=== PATIENT | female | born 1965 | race Caucasian/White ===

== ENCOUNTER 2016-12-22 09:10 | Emergency (ER) | payer OTHER ==
[2016-12-22 09:20] VITALS: TEMP 98.8
[2016-12-22] MEDS ORDERED: ASPIRIN TABLET 325 MG TAB PO ONE (09:24)
--- NOTE | 2016-12-22 09:27 | ED.PDOC ---
History of Present Illness - General Chief Complaint: Neuro Symptoms/Deficits Stated Complaint: numbness in face and dizziness x 20 min Time Seen by Provider: 12/22/16 09:12 Source: patient Exam Limitations: no limitations - History of Present Illness Initial Comments: the patient is a 51-year-old female presenting to the emergency room secondary to a feeling of numbness to the left upper two thirds of her face that started approximately one half hour prior to arrival while she was simply sitting at work. No facial droop. No vision changes. No changes in her hearing. She does have some chronic allergic rhinitis and sinusitis issues that have been flaring. She does have known Mnire's. She does have chronic tinnitus. No difficulty with speech or swallowing. No difficulty with moving her extremities. No numbness elsewhere. No syncope or near-syncope. No chest pain or shortness of breath. She has recently had some anxiety issues. She does not take anything as far as medications with the exception of a multivitamin. She did reportedly have shingles to the left side of her forehead approximately 1 year ago according to her. Her current numbness does include that area but also includes an area slightly lower. No rashes noted currently. No falls or injuries. Timing/Duration: 1/2 hour Severity: mild Improving Factors: nothing Worsening Factors: nothing Associated Symptoms: malaise Allergies/Adverse Reactions: Allergies Amantadine Allergy (Verified 12/22/16 09:18) Home Medications: Ambulatory Orders Acyclovir [Zovirax] 800 mg PO Q6H #20 tab 12/22/16 Gabapentin [Neurontin] 100 mg PO Q8H PRN #20 cap 12/22/16 Review of Systems - Review of Systems Constitutional: States: malaise EENTM: States: ear pain - pressure related to allergies, nose congestion Respiratory: States: no symptoms reported Cardiology: States: no symptoms reported Gastrointestinal/Abdominal: States: no symptoms reported Genitourinary: States: no symptoms reported Musculoskeletal: States: no symptoms reported Skin: States: no symptoms reported Neurological: States: see HPI, anxiety Endocrine: States: no symptoms reported Hematologic/Lymphatic: States: no symptoms reported All other Systems: No Change from Baseline Past Medical History (General) - Patient Medical History Hx Seizures: No Hx Stroke: No Hx Dementia: No Hx Asthma: No Hx of COPD: No Hx Cardiac Disorders: No Hx Congestive Heart Failure: No Hx Pacemaker: No Hx Hypertension: No Hx Thyroid Disease: No Hx Diabetes: No Hx Gastroesophageal Reflux: No Hx Renal Disease: No Hx Cancer: No Hx of HIV: No Hx Hepatitis C: No Hx MRSA: No Surgical History: appendectomy - Vaccination History Hx Tetanus, Diphtheria Vaccination: Yes Hx Influenza Vaccination: Yes Hx Pneumococcal Vaccination: No Immunizations Up to Date: Yes - Social History Hx Tobacco Use: Yes Hx Chewing Tobacco Use: No Hx Alcohol Use: No Hx Substance Use: No Hx Substance Use Treatment: No Hx Depression: No Feels Threatened In Home Enviroment: No Feels Threatened In a Relationship: No Hx Physical Abuse: No Hx Emotional Abuse: No Hx Suspected Abuse: No - Female History Patient is a Female of Child Bearing Age (10 -59 yrs old): No Patient : No Family Medical History - Family History Father Living Status: Hx Family Diabetes: Yes - type 2 Mother Family History: No Known Living Status: Hx Family Asthma: No Physical Exam - Physical Exam General Appearance: Alert, Anxious, No apparent distress Eye Exam: bilateral normal Ears, Nose, Throat: hearing grossly normal, nasal congestion - mild, other - bilateral tympanic membranes show increased pressure and chronic opacity related to allergic rhinitis. No evidence of overt infection. Neck: non-tender, full range of motion, supple, normal inspection - no carotid bruits heard Respiratory: chest non-tender, lungs clear, normal breath sounds, no respiratory distress, no accessory muscle use Cardiovascular/Chest: normal peripheral pulses, no edema, other - the patient is in a sinus tachycardia with a very mildly hyperdynamic precordium currently, but she is anxious Peripheral Pulses: radial,right: 2+, radial,left: 2+, dorsalis pedis,right: 2+, dorsalis pedis,left: 2+ Gastrointestinal/Abdominal: non tender, soft Rectal Exam: deferred Back Exam: normal inspection, no CVA tenderness, no vertebral tenderness Extremity: normal range of motion, non-tender, normal inspection, no pedal edema , no calf tenderness, normal capillary refill Neurologic: alert, normal mood/affect - mild anxiety as stated above, oriented x 3, other - see history of present illness Skin Exam: normal color Comments: Vital Signs - 24 hr 12/22/16 09:15 Temperature 98.8 F Pulse Rate [ 102 H Left Radial] Respiratory 16 Rate Blood Pressure 159/82 [Left Arm] O2 Sat by Pulse 99 Oximetry Progress - Progress Progress: 12/22/16 11:14 the patient is a 51-year-old female presenting to the emergency room secondary to sensation of numbness, even though there is no actual sensation loss, to the left upper half of her face. This is in a similar distribution to her previous shingles. The patient has been monitored for several hours and there is no progression of symptoms. There is no rash at this time. No other neurological changes. Lab work is reassuring. This does appear to be a neuralgia. The patient will be placed on acyclovir in case she is starting to have a shingles flare in that distribution again. Additionally she can take an anti-inflammatory in the form of Advil for the next 3-4 days to help reduce inflammation that may be surrounding the nerve root and also reduce inflammation in her in her ear from her allergic rhinitis. To this end she can also take a Zyrtec daily. obviously if her symptoms change in any significant way for the worse and she needs to be reevaluated. She does understand this. Additionally I would recommend that she take a baby aspirin daily for the next few weeks. ER warnings were given. Follow-up with primary care doctor later this week. the patient will also be written for a prescription for Neurontin for as needed use for nerve discomfort. - Results/Orders Results/Orders: Laboratory Tests 12/22/16 12/22/16 12/22/16 09:20 09:22 09:32 WBC 11.6 H RBC 4.94 Hgb 14.7 Hct 43.8 MCV 88.7 MCH 29.7 MCHC 33.5 RDW 13.9 Plt Count 332 MPV 8.4 Absolute Neuts (auto) 7.30 H Absolute Lymphs (auto) 3.40 Absolute Monos (auto) 0.60 Absolute Eos (auto) 0.20 Absolute Basos (auto) 0.10 Neutrophils % 63.0 Lymphocytes % 29.2 Monocytes % 5.1 Eosinophils % 1.6 Basophils % 1.1 PT 10.5 INR 0.930 PTT (SP) 33.6 Sodium 138 Potassium 3.6 Chloride 107 Carbon Dioxide 26 Anion Gap 8.6 L BUN 8 Creatinine 0.69 BUN/Creatinine Ratio 11.6 Random Glucose 125 H Serum Osmolality 275.5 Calcium 9.0 Magnesium 1.8 Total Bilirubin 0.3 AST 16 ALT 15 Alkaline Phosphatase 103 Creatine Kinase 74 CK-MB (CK-2) 1.1 CK-MB (CK-2) % Not Reportable Troponin I < 0.02 B-Natriuretic Peptide 17.0 Serum Total Protein 7.6 Albumin 4.3 Globulin 3.3 Albumin/Globulin Ratio 1.3 TSH 0.92 Urine Color Yellow Urine Appearance Clear Urine pH 5.5 Ur Specific [place] 1.010 Urine Protein Negative Urine Glucose (UA) Negative Urine Ketones Negative Urine Blood Negative Urine Nitrite Negative Urine Bilirubin Negative Urine Urobilinogen 0.2 Ur Leukocyte Esterase Negative Urine RBC 0-1 Urine WBC 0 Ur Epithelial Cells 1-3 Amorphous Sediment 1+ Urine Bacteria 0 Urine HCG, Qual Negative EKG shows mild sinus tachycardia with a normal axis and intermittent PACs and PVCs. Chest x-ray appears benign. Departure - Departure Clinical Impression: Neuralgia and neuritis, unspecified Disposition: Discharge to Home or Self Care Condition: Fair Departure Forms: ED Discharge - Pt. Copy, Patient Portal Self Enrollment Instructions: DI for Shingles Diet: regular diet Activity: increase activity as tolerated Referrals: Vicente Flynn MD [Primary Care Provider] - 1-5 Days Prescriptions: Gabapentin [Neurontin] 100 mg PO Q8H PRN #20 cap PRN Reason: Pain Acyclovir [Zovirax] 800 mg PO Q6H #20 tab Home Medications: Ambulatory Orders Acyclovir [Zovirax] 800 mg PO Q6H #20 tab 12/22/16 Gabapentin [Neurontin] 100 mg PO Q8H PRN #20 cap 12/22/16 Additional Instructions: the patient is a 51-year-old female presenting to the emergency room secondary to sensation of numbness, even though there is no actual sensation loss, to the left upper half of her face. This is in a similar distribution to her previous shingles. The patient has been monitored for several hours and there is no progression of symptoms. There is no rash at this time. No other neurological changes. Lab work is reassuring. This does appear to be a neuralgia. The patient will be placed on acyclovir in case she is starting to have a shingles flare in that distribution again. Additionally she can take an anti-inflammatory in the form of Advil for the next 3-4 days to help reduce inflammation that may be surrounding the nerve root and also reduce inflammation in her in her ear from her allergic rhinitis. To this end she can also take a Zyrtec daily. obviously if her symptoms change in any significant way for the worse and she needs to be reevaluated. She does understand this. Additionally I would recommend that she take a baby aspirin daily for the next few weeks. ER warnings were given. Follow-up with primary care doctor later this week. the patient will also be written for a prescription for Neurontin for as needed use for nerve discomfort.
--- NOTE | 2016-12-22 10:05 | RAD ---
EXAM DESCRIPTION: Chest,2 Views CLINICAL HISTORY: 51 years Female, left facial tingling IMPRESSION: Two views of the chest reveal clear lungs. Heart size is unremarkable. No pleural effusion or pneumothorax. Lumbar spine is unremarkable. Electronically signed by: Yasir Brand MD 12/22/2016 10:04 AM CDT
[2016-12-22 11:24] VITALS: BP 126/86; O2SAT 89
== END 2016-12-22 11:30 | disposition home or self-care (01) ==
LOC: ER 09:10
DX: M79.2 Neuralgia and neuritis, unspecified (principal); H81.09 Meniere's disease, unspecified ear; Z87.891 Personal history of nicotine dependence; Z88.8 Allergy status to other drugs, medicaments and biological substances

== ENCOUNTER → 2017-02-09 | Outpatient (CLI) | payer OTHER | END | disposition home or self-care (01) | LOC: YCFC.O 13:21 | PROVIDERS: ATTEND Nurse Practitioner Family | DX: Z01.84 Encounter for antibody response examination (principal) ==

== ENCOUNTER → 2017-03-24 | Outpatient (CLI) | payer OTHER ==
--- NOTE | 2017-03-25 12:23 | MAM ---
EXAM DESCRIPTION: 3D Screening BILATERAL CLINICAL HISTORY: 51 yearsFemaleSCREENING. Postmenopausal. No complaints. COMPARISON: Digital screening bilateral examination 01/07/2016. No prior reports available. TECHNIQUE: Bilateral CC and MLO projection full-field images, 3-D tomosynthesis digital mammographic technique. Also bilateral synthesized CC/ MLO full-field images. CAD not utilized. FINDINGS: The breast parenchymal density pattern is: Scattered areas of fibroglandular density. No skin thickening or nipple retraction focal asymmetry in the middle third of the lateral left breast is stable since the prior study with no associated microcalcifications or mass density. Intramammary lymph nodes also seen in the posterior third upper outer quadrant of the left breast and the 6:00 position of the anterior third of the left breast. Small lymph node in the axillary tail of the posterior third of the right breast is stable. Focal asymmetry at the 900 clock position of the middle third of the right breast is also stable. Not associated with mass density. No focal, stellate mass or density, , and no suspicious microcalcifications bilaterally. Stable mammograms compared to January 2016. IMPRESSION: BI-RADS CATEGORY: 2 - BENIGN FINDINGS. FOLLOW UP: Routine digital bilateral screening, one year interval from March 2017. Written communication explaining the findings and follow-up, will be mailed to the patient and referring health care provider. According to the [employer], yearly mammograms are recommended starting at age 40 and continuing as long as a woman is in good health. Any breast change noted on a breast self-exam should be reported promptly to the patient's healthcare provider. Breast MRI is recommended for women with an approximately 20-25% or greater lifetime risk of breast cancer, including women with a strong family history of breast or ovarian cancer and women who have been treated for Hodgkin's disease. A negative mammographic report should not delay tissue diagnosis in patients with significant clinical history or physical findings. Extremely dense breast tissue limits the sensitivity of digital mammography. Electronically signed by: Saul Gonzalez MD 03/25/2017 12:22 PM CDT Workstation: [id number]
== END ==
LOC: MAMMO 12:00
PROVIDERS: ATTEND Family Medicine
DX: Z12.31 Encounter for screening mammogram for malignant neoplasm of breast (principal)
CPT/HCPCS: G0202; G0279

== ENCOUNTER → 2017-05-13 | Outpatient (CLI) | payer OTHER | LOC: YCFC.O 11:45 | PROVIDERS: ATTEND Nurse Practitioner Family | DX: R53.83 Other fatigue (principal) ==

== ENCOUNTER → 2017-10-07 | Outpatient (CLI) | payer OTHER | LOC: YCFC.O 10:52 | DX: B34.9 Viral infection, unspecified (principal) ==

== ENCOUNTER → 2018-05-05 | Outpatient (CLI) | payer OTHER ==
--- NOTE | 2018-05-07 13:18 | MAM ---
EXAM DESCRIPTION: 3D Screening BILATERAL : Digital Mammography. CLINICAL HISTORY: 53 years Female SCREENING . No complaints. No personal history or family history of breast cancer. Childbirth. Postmenopausal. No HRT. Lifetime risk of developing breast cancer (Tyrer-Cuzick model) is 7.5 %. COMPARISON: Bilateral screening digital breast tomosynthesis on 03/24/2017. TECHNIQUE: Bilateral CC and MLO projection full-field images, Digital tomosynthesis mammographic technique. Bilateral digital 2-D full-field MLO images. CAD not utilized. FINDINGS: The breast parenchymal density pattern is: Scattered areas of fibroglandular density. No skin thickening or nipple retraction. Bilateral intramammary lymph nodes. No new focal, stellate mass or density, focal asymmetry , and no suspicious microcalcifications bilaterally. Stable mammograms compared to prior study. Taking into account, differences in mammographic technique. IMPRESSION: Benign exam. BIRAD CATEGORY: 2 BENIGN FINDINGS. RECOMMENDATIONS: FOLLOW UP: Routine digital bilateral screening, one year interval from April 2018. Written communication explaining the IMPRESSION and follow-up, will be mailed to the patient and referring health care provider. According to the [employer], yearly mammograms are recommended starting at age 40 and continuing as long as a woman is in good health. Any breast change noted on a breast self-exam should be reported promptly to the patient's healthcare provider. Breast MRI is recommended for women with an approximately 20-25% or greater lifetime risk of breast cancer, including women with a strong family history of breast or ovarian cancer and women who have been treated for Hodgkin's disease. A negative mammographic report should not delay tissue diagnosis in patients with significant clinical history or physical findings. Extremely dense breast tissue limits the sensitivity of digital mammography. Electronically signed by: Saul Gonzalez MD 05/07/2018 1:17 PM CDT
== END ==
LOC: MAMMO 15:00
PROVIDERS: ATTEND Nurse Practitioner Family
DX: Z12.31 Encounter for screening mammogram for malignant neoplasm of breast (principal)

== ENCOUNTER → 2018-06-02 | Outpatient (CLI) | payer OTHER ==
--- NOTE | 2018-06-02 14:46 | RAD ---
EXAM: Ankle,Left 3 Views CLINICAL HISTORY: PAIN IN LEFT ANKLE AND JOINTS OF LEFT FOOT. TECHNIQUE: AP, lateral and oblique images. COMPARISON STUDY: None FINDINGS: Bone structures and joint spaces appear normal. No fracture or dislocation identified. A 9 mm plantar heel spurs noted. IMPRESSION: 1. Negative left ankle. 2. 9 mm plantar heel spur Electronically signed by: Sudeep Correa MD 06/02/2018 2:45 PM CDT
--- NOTE | 2018-06-02 14:47 | RAD ---
EXAM: Knee,Left 2 or More Views CLINICAL HISTORY: PAIN IN LEFT KNEE COMPARISON STUDY: None TECHNICAL: AP and lateral images of the left knee FINDINGS: There is mild joint space loss of the medial compartment. Osteophytes extend medially from the joint line. There are mild degenerative changes of the patellofemoral joint. There is no fracture or dislocation. A small joint effusion is present. IMPRESSION: 1. Mild degenerative changes of the medial compartment and patellofemoral joint. 2. Small joint effusion Electronically signed by: Sudeep Correa MD 06/02/2018 2:46 PM CDT
== END ==
LOC: RAD 10:21
DX: M25.572 Pain in left ankle and joints of left foot (principal); M25.562 Pain in left knee; M77.32 Calcaneal spur, left foot; M25.462 Effusion, left knee

== ENCOUNTER → 2019-01-03 | Outpatient (CLI) | payer BC | LOC: LAB.O 07:51 | PROVIDERS: ATTEND Obstetrics & Gynecology | DX: Z01.419 Encounter for gynecological examination (general) (routine) without abnormal findings (principal) ==

== ENCOUNTER → 2020-09-13 | Outpatient (CLI) | payer BC ==
--- NOTE | 2020-09-13 16:49 | RAD ---
EXAM DESCRIPTION: Chest,2 Views CLINICAL HISTORY: COVID COMPARISON: Two view chest x-ray December 22, 2016 TECHNIQUE: PA/lateral FINDINGS: Heart size is prominent with normal pulmonary vascularity. No pleural effusion or pneumothorax. Increased density in the right infrahilar region is seen on the frontal view but no infiltrate is identified on the lateral view. It could be that this is no abnormal rib such as cartilage calcification of a bifid anterior right fifth rib. Similar appearance was seen on the previous study. No previous chest CT is available for comparison. Lungs are otherwise clear with no consolidating infiltrate. Lateral view shows intact sternum and T-spine. IMPRESSION: No definite infiltrate is identified in the chest. See above. Electronically signed by: Nate Casey MD 09/13/2020 4:47 PM [facility]
== END ==
LOC: YCFC.O 10:03
PROVIDERS: ATTEND Family Medicine
DX: U07.1 COVID-19 (principal)

== ENCOUNTER 2020-09-14 14:24 | Outpatient (CLI) | payer BC | END 2020-09-14 16:55 | disposition home or self-care (01) | LOC: INFRM 14:24 | PROVIDERS: ATTEND Nurse Practitioner Family | DX: U07.1 COVID-19 (principal) ==

== ENCOUNTER 2020-09-16 04:31 | Observation (INO) | payer BC ==
[2020-09-16] MEDS ORDERED: ONDANSETRON INJ 4 MG/2 ML VIAL ONE (04:38)
[2020-09-16] MEDS ORDERED: ONDANSETRON INJ 4 MG/2 ML VIAL IV ONE ×2 (04:49→05:46)
[2020-09-16] MEDS ORDERED: SODIUM CHLORIDE 0.9% 1000ML 1,000 ML IVS ONE (04:53)
--- NOTE | 2020-09-16 05:35 | ED.PDOC ---
History of Present Illness - General Chief Complaint: Abdominal Pain Stated Complaint: NAUSEA/VOMITING Time Seen by Provider: 09/16/20 05:20 Source: patient, RN notes reviewed - History of Present Illness Initial Comments: The patient is a 55 year old with no significant past medical history who presents to the ED with nausea and vomiting. She states that she started to feel ill last week with myalgias and tested positive for COVID-19 after losing taste and smell. She received bamlanivimab infusion two days ago. Afterward she developed profuse nausea and vomiting and later dry-heaves. She reports feeling a little weak and light-headed. Denies chest pain, shortness of breath, diarrhea, or any other complaints at this time. Allergies/Adverse Reactions: Allergies Amantadine Allergy (Verified 12/22/16 09:18) Home Medications: Ambulatory Orders Acyclovir [Zovirax] 800 mg PO Q6H #20 tab 12/22/16 Gabapentin [Neurontin] 100 mg PO Q8H PRN #20 cap 12/22/16 Review of Systems - Review of Systems Constitutional: States: malaise, weakness EENTM: States: no symptoms reported Respiratory: Denies: cough, short of breath Cardiology: Denies: chest pain, palpitations Gastrointestinal/Abdominal: States: nausea, vomiting. Denies: abdominal pain, constipation, diarrhea Genitourinary: States: no symptoms reported Musculoskeletal: States: muscle pain Skin: States: no symptoms reported Neurological: States: no symptoms reported Endocrine: States: no symptoms reported Hematologic/Lymphatic: States: no symptoms reported All other Systems: Reviewed and Negative Past Medical History (General) - Patient Medical History Hx Seizures: No Hx Stroke: No Hx Dementia: No Hx Asthma: No Hx of COPD: No Hx Cardiac Disorders: No Hx Congestive Heart Failure: No Hx Pacemaker: No Hx Hypertension: No Hx Thyroid Disease: No Hx Diabetes: No Hx Gastroesophageal Reflux: No Hx Renal Disease: No Hx Cancer: No Hx of HIV: No Hx Hepatitis C: No Hx MRSA: No - Vaccination History Hx Tetanus, Diphtheria Vaccination: Yes Hx Influenza Vaccination: Yes Hx Pneumococcal Vaccination: No Immunizations Up to Date: Yes - Social History Hx Tobacco Use: No Hx Chewing Tobacco Use: No Hx Alcohol Use: No Hx Substance Use: No Hx Substance Use Treatment: No Hx Depression: No Hx Physical Abuse: No Hx Emotional Abuse: No Hx Suspected Abuse: No - Female History Patient is a Female of Child Bearing Age (10 -59 yrs old): No Patient : No Family Medical History - Family History Father Living Status: Hx Family Diabetes: Yes - type 2 Mother Family History: No Known Living Status: Hx Family Asthma: No Physical Exam - Physical Exam General Appearance: Comfortable, Ill Appearing Ears, Nose, Throat: hearing grossly normal Neck: non-tender, full range of motion Respiratory: no respiratory distress, no accessory muscle use Cardiovascular/Chest: regular rate, rhythm Gastrointestinal/Abdominal: non tender, soft Neurologic: alert, normal mood/affect, oriented x 3 Skin Exam: normal color, warm/dry Progress - Progress Progress: 09/16/20 05:36 Patient with nausea/vomiting after bamlanivimab infusion for COVID-19. No chest pain or shortness of breath. Labs with mild hypokalemia only. Will PO challenge and reassess. 09/16/20 05:46 Patient started vomiting after initial zofran/IVF. Will repeat zofran. If unable to tolerate PO will require admission. 09/16/20 06:17 Patient continues to have vomiting after second dose of zofran, will try phenergan. 09/16/20 06:47 Continues to have nausea and vomiting despite phenergan. Will admit for inability to tolerate PO. Discussed with [facility] who accepts for admit. - Results/Orders Results/Orders: Laboratory Tests 09/16/20 09/16/20 09/16/20 04:47 04:48 04:48 WBC 5.8 RBC 4.85 Hgb 14.5 Hct 42.4 MCV 87.5 MCH 30.0 MCHC 34.3 RDW 13.7 Plt Count 209 MPV 7.9 Absolute Neuts (auto) 2.70 Absolute Lymphs (auto) 2.40 Absolute Monos (auto) 0.70 Absolute Eos (auto) 0.00 Absolute Basos (auto) 0.00 Neutrophils % 45.5 Lymphocytes % 41.9 Monocytes % 11.7 H Eosinophils % 0.2 L Basophils % 0.7 Sodium 138 Potassium 3.3 L Chloride 101 Carbon Dioxide 24 Anion Gap 16.3 BUN 9 Creatinine 0.48 L BUN/Creatinine Ratio 18.8 Random Glucose 122 H Serum Osmolality 275.7 Lactic Acid 0.9 Calcium 8.4 Total Bilirubin 0.6 AST 23 ALT 22 Alkaline Phosphatase 61 Serum Total Protein 7.5 Albumin 3.8 Globulin 3.7 H Albumin/Globulin Ratio 1.0 L Departure - Departure Clinical Impression: Nausea and vomiting Qualifiers: Vomiting type: unspecified Vomiting Intractability: intractable Qualified Code(s): R11.2 - Nausea with vomiting, unspecified Time of Disposition: 06:48 Disposition: Admit Patient Condition: Fair Departure Forms: ED Discharge - Pt. Copy, Patient Portal Self Enrollment Instructions: DI for Abdominal Pain-Adult Referrals: Larissa Vargas MD [Primary Care Provider] - 1-2 Weeks Home Medications: Ambulatory Orders Acyclovir [Zovirax] 800 mg PO Q6H #20 tab 12/22/16 Gabapentin [Neurontin] 100 mg PO Q8H PRN #20 cap 12/22/16 Decision To Admit - Decistion To Admit Decision to Admit Reason: Admit from ER Decision to Admit Date: 09/16/20 Decision to Admit Time: 06:48
[2020-09-16] MEDS ORDERED: PROMETHAZINE HCL INJ 25 MG/ML VIAL IM ONE (06:21)
[2020-09-16] MEDS ORDERED: PROMETHAZINE HCL INJ 25 MG/ML VIAL ONE ×2 (06:22→17:25)
[2020-09-16] MEDS ORDERED: KCL 40MEQ/NS 1,000 ML IVS PRN (06:49)
--- NOTE | 2020-09-16 07:18 | HP ---
SUPERVISING PHYSICIAN: Aquilino Gary MD CHIEF COMPLAINT: Nausea and vomiting. HISTORY OF PRESENT ILLNESS: This is a 55-year-old female patient who presented to the Emergency Room with nausea and vomiting that started several days ago. She was diagnosed with COVID-19 and actually received Bamlanivimab infusion 2 days ago. Shortly after receiving that infusion, she reported nausea and vomiting that was profuse and later, she had dry heaves. She was unable to control it and she started feeling weak and lightheaded and came to the Emergency Room. Her initial vital signs were temperature 97.8, heart rate 100, blood pressure 145/92, respiratory rate 18, O2 saturation 94%. She received fluids and some antiemetics. Lab studies were done. Her CBC was unremarkable. BMP was unremarkable with exception that her potassium was slightly low at 3.3. Her urinalysis was unremarkable. It was difficult to control her nausea and vomiting in the Emergency Room and it was felt she would benefit from admission to the hospital. The patient was placed in observation in the hospital in stable condition. PAST MEDICAL HISTORY: 1. Seasonal allergies. 2. Possible chronic obstructive pulmonary disease due to extensive tobacco history. PAST SURGICAL HISTORY: 1. . OUTPATIENT MEDICATIONS: None. ALLERGIES: AMANTADINE. SOCIAL HISTORY: She lives in [place]. She is a nurse at [employer]. She is . She smoked for many years, but quit about two years ago. She drinks an alcoholic beverage on a social basis. There is no history of illicit drug use. REVIEW OF SYSTEMS: GENERAL: Positive for fatigue. Negative for fever or weight changes. HEENT: Positive for rhinorrhea. Negative for ear pain, vision changes or sore throat. RESPIRATORY: Negative for wheezing, coughing or shortness of breath. CARDIAC: Negative for chest pain, palpitations or tachycardia. GASTROINTESTINAL: As per history of present illness. GENITOURINARY: Negative for hematuria, dysuria or polyuria. SKIN: Negative for lesions or rashes. NEUROLOGIC: Positive for weakness. Negative for headache or seizures. PHYSICAL EXAMINATION: VITAL SIGNS: Temperature 97.9, heart rate 86, blood pressure 142/86, respiratory rate 16, O2 saturation 96% on room air. GENERAL: This is a 55-year-old female patient who is sitting in her hospital bed. She looks to be moderately ill. HEENT: Normocephalic, atraumatic. Pupils are equal and reactive. Oropharynx is clear. NECK: Supple without mass. RESPIRATORY: Essentially clear to auscultation bilaterally. CARDIOVASCULAR: Regular rate and rhythm. GASTROINTESTINAL: Abdomen is soft, nondistended. It is diffusely tender in the epigastric area. No rebound tenderness or guarding. Bowel sounds are positive. NEUROLOGIC: Awake, alert and oriented times three. Cranial nerves II-XII are grossly intact as tested. SKIN: [place], warm and dry. LABORATORY: Labs and films are as per history of present illness. IMPRESSION: 1. Nausea and vomiting secondary to monoclonal antibody infusion. 2. COVID-19. 3. Undiagnosed chronic obstructive pulmonary disease with a significant history of smoking. She quit smoking cigarettes two years ago. PLAN: The patient has been placed in observation. She will get fluids overnight and initially will be NPO. We will advance diet as tolerated. She will have Phenergan and Zofran as antiemetic. I did order routine COVID labs as well as a chest x-ray in the morning although she has no significant symptoms from her COVID other than the nausea and vomiting. Hopefully, once her diet is advanced she can be discharged home. #[id number] [facility]
[2020-09-16] MEDS ORDERED: ACETAMINOPHEN 325 MG TAB PO PRN (10:49)
[2020-09-16] MEDS ORDERED: SODIUM CHLORIDE 0.9% (FLUSH) 10 ML SYG IV PRN (10:49)
[2020-09-16] MEDS ORDERED: ONDANSETRON INJ 4 MG/2 ML VIAL IV PRN (10:49)
[2020-09-16] MEDS ORDERED: IV SET AND CAP CHANGE INJ INJ SCH (11:00)
[2020-09-16] MEDS: KCL 20MEQ/D5 1/2NS 1,000 ML IVS PRN ×2 (14:58→23:00)
[2020-09-16] MEDS ORDERED: SODIUM CHLORIDE 0.9% 50ML 50 ML ONE (17:25)
[2020-09-16] MEDS: PROMETHAZINE HCL INJ 25 MG in SODIUM CHLORIDE 0.9% 50ML 50 ML IVPB PRN (17:28)
[2020-09-16] MEDS: SODIUM CHLORIDE 0.9% (FLUSH) 10 ML SYG IV SCH (23:43)
[2020-09-17] MEDS ORDERED: PROMETHAZINE HCL INJ 25 MG/ML VIAL ONE (04:51)
[2020-09-17] MEDS ORDERED: SODIUM CHLORIDE 0.9% 50ML 50 ML ONE (04:51)
[2020-09-17] MEDS: PROMETHAZINE HCL INJ 25 MG in SODIUM CHLORIDE 0.9% 50ML 50 ML IVPB PRN (04:53)
--- NOTE | 2020-09-17 06:32 | RAD ---
EXAM: XR Chest, 1 View CLINICAL HISTORY: covid TECHNIQUE: Frontal view of the chest. COMPARISON: 09/13/2020 FINDINGS: Lungs: Very subtle groundglass infiltrate identified in the lower right lung. Pleural space: No pneumothorax. No pleural effusion. Heart: Normal cardiac size and configuration. Mediastinum: No abnormality noted. Bones/joints: No osseous destruction or sclerosis noted. IMPRESSION: There is subtle groundglass abnormality in the right base with imaging features typical of covid pneumonia. Electronically signed by: Zunilda Augustin MD 09/17/2020 6:30 AM [facility] [employer]
[2020-09-17] MEDS ORDERED: KCL 20MEQ/D5 1/2NS 0 ML IVS ONE (07:30)
[2020-09-17 12:05] VITALS: BP 133/87; TEMP 98; O2SAT 96
[2020-09-17] MEDS: SODIUM CHLORIDE 0.9% (FLUSH) 10 ML SYG IV SCH (13:55)
--- NOTE | 2020-09-17 18:02 | DS ---
SUPERVISING PHYSICIAN: Ulises Mendez MD ADMISSION DIAGNOSIS: 1. Nausea and vomiting secondary to monoclonal antibody infusion. 2. COVID-19 pneumonitis without significant hypoxia. 3. Undiagnosed chronic obstructive pulmonary disease with a significant history of smoking. DISCHARGE DIAGNOSIS: 1. Nausea and vomiting secondary to monoclonal antibody infusion. 2. COVID-19 pneumonitis without significant hypoxia. 3. Undiagnosed chronic obstructive pulmonary disease with a significant history of smoking. HOSPITAL COURSE: This is a 55-year-old female who presented to the Emergency Room with nausea and vomiting that started several days ago. She was diagnosed with COVID-19 and actually received Bamlanivimab infusion 2 days ago. Shortly after receiving the infusion, she became nausea and started to vomit. She continued to have dry heaves as well. In the ER, O2 saturations were acceptable, vital signs were stable. Potassium was slightly low at 3.3. It was difficult to control her nausea and vomiting, therefore the ER consulted for admission. She was given promethazine as well as Zofran throughout the admission and subsequently improved. Today, she advanced from a clear liquid diet to a regular diet and did well with this. Therefore, she will be discharged today in stable condition with a prescription for promethazine. She will followup with her primary care physician. She is not having any COVID related hypoxia issues. She does not complain of any shortness of breath. Chest x-ray does show right lower lobe patchy infiltrate consistent with COVID pneumonitis, but not diffuse infiltrations. #[id number] [facility]
== END 2020-09-17 15:25 | disposition home or self-care (01) ==
LOC: ER 04:31 → MS 07:17
PROVIDERS: ADMIT Nurse Practitioner Acute Care; ATTEND Nurse Practitioner
DX: R11.2 Nausea with vomiting, unspecified (principal); T37.5X5A Adverse effect of antiviral drugs, initial encounter; U07.1 COVID-19; J12.82 Pneumonia due to coronavirus disease 2019; J44.9 Chronic obstructive pulmonary disease, unspecified; E87.6 Hypokalemia; Z87.891 Personal history of nicotine dependence; Z88.8 Allergy status to other drugs, medicaments and biological substances
CPT/HCPCS: 96365; 96375; 96376 ×2; 96372; J2405 ×3; J2550 ×3; J7030; A4216 ×2; J3480; 80053 ×2; 36415 ×2; 81001; 85025 ×2; 83735; 83605; 71045; 94760; 99285

== ENCOUNTER 2020-09-18 11:32 | Emergency (ER) | payer BC ==
[2020-09-18] MEDS ORDERED: SODIUM CHLORIDE 0.9% 500ML 500 ML IVS ONE (11:45)
--- NOTE | 2020-09-18 12:20 | RAD ---
EXAM DESCRIPTION: Chest,1 View CLINICAL HISTORY: 55 years Female, COVID 19 COMPARISON: 09/17/2020 TECHNIQUE: Single view radiograph of the chest. IMPRESSION: Normal size cardiac silhouette. Unchanged right greater than left basilar interstitial opacification that could represent viral infection. No pleural effusion or pneumothorax. Thoracic spondylosis. Electronically signed by: Anand Patel MD 09/18/2020 12:18 PM [facility]
--- NOTE | 2020-09-18 12:37 | ED.PDOC ---
History of Present Illness - General Chief Complaint: General Stated Complaint: +COVID,weakness,SOB Time Seen by Provider: 09/18/20 11:44 Source: patient Exam Limitations: no limitations - History of Present Illness Comments: PATIENT RECENTLY HOSPITALIZED FOR COVID AND WEAKNESS, JUST FEELING BAD, RETURNS WITH SAME. LIVES ALONE AND WAS FEELING ANXIOUS ABOUT IT ALL. 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 SHE CONTINUES TO FEEL WEAK AND HAVE NO ENERGY. Timing/Duration: week Cough Quality/Degree: dry cough Possible Cause: no prior episodes Improving Factors: nothing Worsening Factors: nothing Associated Symptoms: cough, fever/chills, headache, nasal congestion, shortness of breath Allergies/Adverse Reactions: Allergies Amantadine Allergy (Verified 12/22/16 09:18) Home Medications: Ambulatory Orders Multiple Vitamin [Multi Vitamin] 1 tab PO DAILY 09/16/20 Promethazine HCl 25 mg PO Q6H PRN 30 Days #30 tab 09/17/20 Review of Systems - Review of Systems Constitutional: States: see HPI EENTM: States: see HPI Respiratory: States: see HPI Cardiology: States: chest pain Gastrointestinal/Abdominal: States: no symptoms reported Genitourinary: States: no symptoms reported Musculoskeletal: States: back pain, muscle pain, muscle stiffness Skin: States: no symptoms reported Neurological: States: no symptoms reported Past Medical History (General) - Patient Medical History Hx Seizures: No Hx Stroke: No Hx Dementia: No Hx Asthma: No Hx of COPD: No Hx Cardiac Disorders: No Hx Congestive Heart Failure: No Hx Pacemaker: No Hx Hypertension: No Hx Thyroid Disease: No Hx Diabetes: No Hx Gastroesophageal Reflux: No Hx Renal Disease: No Hx Cancer: No Hx of HIV: No Hx Hepatitis C: No Hx MRSA: No - Vaccination History Hx Tetanus, Diphtheria Vaccination: Yes Hx Influenza Vaccination: Yes Hx Pneumococcal Vaccination: No - Social History Hx Tobacco Use: Yes Hx Chewing Tobacco Use: No Hx Alcohol Use: No Hx Substance Use: No Hx Substance Use Treatment: No Hx Depression: No Hx Physical Abuse: No Hx Emotional Abuse: No Hx Suspected Abuse: No - Female History Patient : No Family Medical History - Family History Father Living Status: Hx Family Diabetes: Yes - type 2 Mother Family History: No Known Living Status: Hx Family Asthma: No Departure - Departure Clinical Impression: COVID-19, Anxiety Time of Disposition: 12:35 Disposition: Discharge to Home or Self Care Condition: Good Departure Forms: ED Discharge - Pt. Copy, Patient Portal Self Enrollment Instructions: Coronavirus Disease 2019 (COVID-19) (DC) Referrals: Larissa Vargas MD [Primary Care Provider] - 1-2 Weeks Home Medications: Ambulatory Orders Multiple Vitamin [Multi Vitamin] 1 tab PO DAILY 09/16/20 Promethazine HCl 25 mg PO Q6H PRN 30 Days #30 tab 09/17/20
[2020-09-18 13:24] VITALS: BP 148/89; TEMP 99.7; O2SAT 98
== END 2020-09-18 13:34 | disposition home or self-care (01) ==
LOC: ER 11:32
DX: U07.1 COVID-19 (principal); F41.9 Anxiety disorder, unspecified; Z87.891 Personal history of nicotine dependence; Z88.8 Allergy status to other drugs, medicaments and biological substances
CPT/HCPCS: 36415; 71045; 80053; 85025; J7040

== ENCOUNTER → 2020-09-21 | Outpatient (CLI) | payer BC ==
[~2020-09-21] MED LIST: ONDANSETRON INJ 4 MG/2 ML VIAL ONE; SODIUM CHLORIDE 0.9% 1000ML 1,000 ML IVS PRN; SODIUM CHLORIDE 0.9% 1000ML 1,000 ML ONE
[2020-09-21] MEDS: ONDANSETRON INJ 4 MG/2 ML VIAL IV ONE ×2 (17:20→19:02)
[2020-09-21 18:56] VITALS: BP 160/95; TEMP 98.1; O2SAT 95
== END ==
LOC: INFRM 17:03
PROVIDERS: ATTEND Nurse Practitioner
DX: E86.0 Dehydration (principal)
CPT/HCPCS: 96360; J2405; J7030

== ENCOUNTER → 2020-09-24 | Outpatient (CLI) | payer BC | LOC: YCFC.O 12:08 | PROVIDERS: ATTEND Nurse Practitioner | DX: R74.01 Elevation of levels of liver transaminase levels (principal) ==